=== PATIENT | female | born 1975 | race American Indian/Alaskan Native ===

== ENCOUNTER 2016-09-11 13:53 | Emergency (ER) | payer BC ==
[2016-09-11 15:37] VITALS: BP 129/85
[2016-09-11 16:12] LABS: Creatine Kinase 217 units/L (30-135); Creatine Kinase MB 1.9 ng/mL (0.0-4.0)
[2016-09-11 16:13] LABS: Alanine Aminotransferase 8 units/L (7-56); Albumin 4.2 g/dL (3.9-5); Albumin/Globulin Ratio 1.4 %; Alkaline Phosphatase 57 units/L (35-129); Anion Gap 18 mmol/L; BUN/Creatinine Ratio 16.25; Bilirubin,Total 0.2 mg/dL (0.1-1.2); Blood Urea Nitrogen 13 mg/dL (7-17); Carbon Dioxide 24 mmol/L (22-30); Chloride 96.1 mmol/L (98-107); Glucose 171 mg/dL (65-100); Lipase 42 units/L (13-60); Potassium 3.6 mmol/L (3.6-5.0); Sodium 134 mmol/L (137-145); Total Protein 7.2 g/dL (6.3-8.2)
[2016-09-11 16:16] LABS: Basophils % (Auto) 1.2 % (0.0-1.8); Eosinophils % (Auto) 1.3 % (0.0-4.3); Hematocrit 39.6 % (30.3-42.9); Hemoglobin 13.1 gm/dl (10.1-14.3); Mean Corpuscular HGB Conc 33 % (30-34); Mean Corpuscular Hemoglobin 27 pg (28-32); Mean Corpuscular Volume 80 fl (79-97); Platelet Count 338 K/mm3 (140-440); Red Blood Count 4.96 M/mm3 (3.65-5.03); Red Cell Distribution Width 16.5 % (13.2-15.2); White Blood Count 7.8 K/mm3 (4.5-11.0)
[2016-09-11 18:35] LABS: Bilirubin,Urine NEG (Negative); Blood,Urine MOD (Negative); Ketones,Urine NEG (Negative); Leukocyte Esterase,Urine NEG (Negative); Mucus,Urine FEW /HPF; Nitrite,Urine NEG (Negative); Protein,Urine <15 mg/dL mg/dL (Negative); Urobilinogen,Urine < 2.0 mg/dL (<2.0)
--- NOTE | 2016-09-11 19:27 | Emergency Department Report ---
ED General Adult HPI - General Chief complaint: Abdominal Pain Stated complaint: ABD PAIN,SEVERE SHOULDER MAYEN Source: patient Mode of arrival: Ambulatory Limitations: No Limitations - History of Present Illness Initial comments: Patient here complaining of abdominal pain to left upper quadrant with diarrhea and nausea and reported that she gets dizzy sometimes. She's had these symptoms in the past. She is now reporting left shoulder pain with no injury denies any fever or chills. Denies any nausea vomiting. She is also having this in the past. She said her pain to her left shoulder and left upper abdomen is 9 out of 10 and achy/crampy. Denies any chest pain, shortness of breath. Denies any urinary burning frequency or urgency. Denies any fever or chills. Patient says that she's been waiting so long that her abdominal pain is not there anymore but she is having pain 9 out of 10 in her shoulders it's radiating down to her forearm. She was seen here on 12/06/2015 for chest pain she had cardiac workup which was negative and she was diagnosed with esophagitis and GERD. Patient did not follow-up because she says she lost her insurance but she says that she got her insurance back and she will be following up. Her CT angios to chest also showed that she had a hemangioma of the liver which she will told attending physician at the time that she knew about that. Patient was also complaining that she was having nausea and diarrhea earlier but none since she's been in the emergency room. MD Complaint: abdominal pain and shoulder pain Onset/Timin -: week(s) Location: abdomen, left, upper extremity Radiation: extremity, distal Quality: aching, other (cramping and fluttering to left upper abdomen) Consistency: intermittent Improves with: none Worsens with: movement (to left upper extremity) Associated Symptoms: nausea/vomiting. denies: confusion, chest pain, cough, diaphoresis, fever/chills, loss of appetite, malaise, rash, seizure, shortness of breath, syncope, weakness Treatments Prior to Arrival: none - Related Data Home Medications Medication Instructions Recorded Confirmed Last Taken Triamterene-Hctz 50-25 mg Cap 30 mg PO QDAY 12/06/15 12/06/15 Unknown Previous Rx's Medication Instructions Recorded Last Taken Type Mag Hydrox/Al Hydrox/Simeth 20 ml PO QID PRN #1 bottle 12/07/15 Unknown Rx [Maalox Advanced Suspension] Ranitidine HCl [Zantac 150 MG TAB] 150 mg PO BID #60 tablet 12/07/15 Unknown Rx Triamterene/Hydrochlorothiazid 1 each PO DAILY #30 capsule 12/07/15 Unknown Rx [Triamterene-Hctz 50-25 mg Cap] Promethazine [Phenergan TAB] 25 mg PO Q8HR PRN #15 tab 09/11/16 Unknown Rx traMADol [Ultram 50 MG tab] 50 mg PO Q6HR PRN #20 tablet 09/11/16 Unknown Rx Allergies Allergy/AdvReac Type Severity Reaction Status Date / Time No Known Allergies Allergy Verified 12/06/15 16:02 ED Review of Systems ROS: Stated complaint: ABD PAIN,SEVERE SHOULDER MAYEN Other details as noted in HPI Comment: All other systems reviewed and negative Constitutional: denies: chills, fever Eyes: denies: eye pain, vision change ENT: denies: throat pain Respiratory: no symptoms reported Cardiovascular: denies: chest pain, palpitations, edema, syncope Gastrointestinal: abdominal pain, nausea, diarrhea. denies: vomiting, constipation, melena Genitourinary: denies: urgency, dysuria, frequency, hematuria, discharge Musculoskeletal: arthralgia. denies: back pain, joint swelling, myalgia Skin: denies: rash Neurological: denies: headache ED Past Medical Hx - Past Medical History Previous Medical History?: Yes Hx Hypertension: Yes Additional medical history: Psoriasis - Surgical History Past Surgical History?: Yes Additional Surgical History: 1991 - Family History Family history: hypertension - Social History Smoking Status: Never Smoker Substance Use Type: None - Medications Home Medications: Home Medications Medication Instructions Recorded Confirmed Last Taken Type Triamterene-Hctz 50-25 mg Cap 30 mg PO QDAY 12/06/15 12/06/15 Unknown History Mag Hydrox/Al Hydrox/Simeth 20 ml PO QID PRN #1 bottle 12/07/15 Unknown Rx [Maalox Advanced Suspension] Ranitidine HCl [Zantac 150 MG TAB] 150 mg PO BID #60 tablet 12/07/15 Unknown Rx Triamterene/Hydrochlorothiazid 1 each PO DAILY #30 capsule 12/07/15 Unknown Rx [Triamterene-Hctz 50-25 mg Cap] Promethazine [Phenergan TAB] 25 mg PO Q8HR PRN #15 tab 09/11/16 Unknown Rx traMADol [Ultram 50 MG tab] 50 mg PO Q6HR PRN #20 tablet 09/11/16 Unknown Rx ED Physical Exam - General Limitations: No Limitations General appearance: alert, in no apparent distress - Head Head exam: Present: atraumatic, normocephalic, normal inspection - Eye Eye exam: Present: normal appearance, PERRL, EOMI. Absent: periorbital swelling , periorbital tenderness Pupils: Present: normal accommodation - ENT ENT exam: Present: normal exam, normal orophraynx, mucous membranes moist. Absent: TM's normal bilaterally, normal external ear exam - Neck Neck exam: Present: normal inspection, full ROM. Absent: tenderness, meningismus, lymphadenopathy - Respiratory Respiratory exam: Present: normal lung sounds bilaterally. Absent: respiratory distress, chest wall tenderness - Cardiovascular Cardiovascular Exam: Present: regular rate, normal rhythm, normal heart sounds - GI/Abdominal GI/Abdominal exam: Present: soft, normal bowel sounds. Absent: bruit, pulsatile mass, guarding, rebound, diminished bowel sounds, tenderness, organomegaly, distended, rigid - Expanded Upper Extremity Exam Left Shoulder Exam: Present: normal inspection. Absent: full ROM (Limited range of motion to left shoulder. She is able to raise both her hands of her head but she says it's very painful to her left shoulder), tenderness, swelling, abrasion , laceration, ecchymosis, deformity, crepidus, dislocation, erythema, tenderness over AC joint Upper Arm exam: Present: normal inspection, full ROM. Absent: tenderness, swelling, abrasion, laceration, ecchymosis, deformity, crepidus, dislocation, erythema Elbow exam: Present: normal inspection, full ROM. Absent: tenderness, swelling , abrasion, laceration, ecchymosis, deformity, crepidus, dislocation, erythema, effusion, pain w/ pronation/supination, tenderness over radial head Forearm Wrist exam: Present: normal inspection, full ROM. Absent: tenderness, swelling, abrasion, laceration, ecchymosis, deformity, crepidus, dislocation, erythema, tenderness over anatomical snuff box, pain with axial thumb loading Hand Wrist exam: Present: normal inspection, full ROM. Absent: tenderness, swelling, abrasion, laceration, ecchymosis, deformity, crepidus, dislocation, erythema, amputation, nail avulsion, subungual hematoma Neuro motor exam: Present: wrist extension intact, thumb opposition intact, thumb IP flexion intact, thumb adduction intact, fingers 2-5 abduction intact Neurosensory exam: Present: 2-point discrimination, radial nerve intact, ulnar nerve intact, median nerve intact Vascular: Present: normal capillary refill, radial pulse, brachial pulse, ulnar pulse. Absent: vascular compromise, Pallo, pulse deficit radial art, pulse deficit ulnar art, pulse deficit brachial art - Back Exam Back exam: Present: normal inspection, full ROM. Absent: rash noted - Neurological Exam Neurological exam: Present: alert, reflexes normal, normal gait, oriented X3. Absent: motor sensory deficit - Psychiatric Psychiatric exam: Present: normal affect, normal mood - Skin Skin exam: Present: warm, dry, rash (patient with dry scaly patchy areas to left arm from chronic psoriasis.) ED Course Vital Signs 09/11/16 15:30 Temperature 98.3 F Pulse Rate 106 H Respiratory 18 Rate Blood Pressure 129/85 O2 Sat by Pulse 100 Oximetry Vital Signs 09/11/16 09/11/16 15:30 19:37 Temperature 98.3 F Pulse Rate 106 H 92 H Respiratory 18 18 Rate Blood Pressure 129/85 O2 Sat by Pulse 100 Oximetry - Reevaluation(s) Reevaluation #1: 09/11/16 19:43 Patient given Percocet 5/325 2 tablets, Zofran 4 mg ODT and Deltasone 60 mg by mouth. Reevaluation #2: 09/11/16 19:52 Patient was able to tolerate oral liquids in emergency room without any nausea or vomiting. - Orthopedic Splinting/Casting Injury #1 Side: left Upper Extremity Injury Location: shoulder Upper Extremity Immobilizer: sling/shoulder immobilize ED Medical Decision Making - Lab Data Result diagrams: 09/11/16 15:46 09/11/16 15:46 Lab Results 09/11/16 09/11/16 09/11/16 Range/Units 15:46 15:46 15:46 WBC 7.8 (4.5-11.0) K/mm3 RBC 4.96 (3.65-5.03) M/mm3 Hgb 13.1 (10.1-14.3) gm/dl Hct 39.6 (30.3-42.9) % MCV 80 (79-97) fl MCH 27 L (28-32) pg MCHC 33 (30-34) % RDW 16.5 H (13.2-15.2) % Plt Count 338 (140-440) K/mm3 Lymph % (Auto) 30.8 (13.4-35.0) % [place] % (Auto) 5.3 (0.0-7.3) % Eos % (Auto) 1.3 (0.0-4.3) % Baso % (Auto) 1.2 (0.0-1.8) % Lymph # 2.4 (1.2-5.4) K/mm3 [place] # 0.4 (0.0-0.8) K/mm3 Eos # 0.1 (0.0-0.4) K/mm3 Baso # 0.1 (0.0-0.1) K/mm3 Seg Neutrophils % 61.4 (40.0-70.0) % Seg Neutrophils # 4.8 (1.8-7.7) K/mm3 Sodium 134 L (137-145) mmol/L Potassium 3.6 (3.6-5.0) mmol/L Chloride 96.1 L (98-107) mmol/L Carbon Dioxide 24 (22-30) mmol/L Anion Gap 18 mmol/L BUN 13 (7-17) mg/dL Creatinine 0.8 (0.7-1.2) mg/dL Estimated GFR > 60 ml/min BUN/Creatinine Ratio 16.25 % Glucose 171 H (65-100) mg/dL Calcium 9.0 (8.4-10.2) mg/dL Total Bilirubin 0.2 (0.1-1.2) mg/dL AST 12 (5-40) units/L ALT 8 (7-56) units/L Alkaline Phosphatase 57 (35-129) units/L Total Creatine Kinase 217 H (30-135) units/L CK-MB (CK-2) 1.9 (0.0-4.0) ng/mL CK-MB (CK-2) Rel Index 0.8 (0-4) Troponin T < 0.010 (0.00-0.029) ng/mL Total Protein 7.2 (6.3-8.2) g/dL Albumin 4.2 (3.9-5) g/dL Albumin/Globulin Ratio 1.4 % Lipase 42 (13-60) units/L Urine Color (Yellow) Urine Turbidity (Clear) Urine pH (5.0-7.0) Ur Specific [place] (1.003-1.030) Urine Protein (Negative) mg/dL Urine Glucose (UA) (Negative) mg/dL Urine Ketones (Negative) mg/dL Urine Blood (Negative) Urine Nitrite (Negative) Ur Reducing Substances Urine Bilirubin (Negative) Urine Ictotest Urine Urobilinogen (<2.0) mg/dL Ur Leukocyte Esterase (Negative) Urine WBC (Auto) (0.0-6.0) /HPF Urine RBC (Auto) (0.0-6.0) /HPF U Epithel Cells (Auto) (0-13.0) /HPF Urine Mucus /HPF Urine HCG, Qual (Negative) 09/11/16 Range/Units 18:09 WBC (4.5-11.0) K/mm3 RBC (3.65-5.03) M/mm3 Hgb (10.1-14.3) gm/dl Hct (30.3-42.9) % MCV (79-97) fl MCH (28-32) pg MCHC (30-34) % RDW (13.2-15.2) % Plt Count (140-440) K/mm3 Lymph % (Auto) (13.4-35.0) % [place] % (Auto) (0.0-7.3) % Eos % (Auto) (0.0-4.3) % Baso % (Auto) (0.0-1.8) % Lymph # (1.2-5.4) K/mm3 [place] # (0.0-0.8) K/mm3 Eos # (0.0-0.4) K/mm3 Baso # (0.0-0.1) K/mm3 Seg Neutrophils % (40.0-70.0) % Seg Neutrophils # (1.8-7.7) K/mm3 Sodium (137-145) mmol/L Potassium (3.6-5.0) mmol/L Chloride (98-107) mmol/L Carbon Dioxide (22-30) mmol/L Anion Gap mmol/L BUN (7-17) mg/dL Creatinine (0.7-1.2) mg/dL Estimated GFR ml/min BUN/Creatinine Ratio % Glucose (65-100) mg/dL Calcium (8.4-10.2) mg/dL Total Bilirubin (0.1-1.2) mg/dL AST (5-40) units/L ALT (7-56) units/L Alkaline Phosphatase (35-129) units/L Total Creatine Kinase (30-135) units/L CK-MB (CK-2) (0.0-4.0) ng/mL CK-MB (CK-2) Rel Index (0-4) Troponin T (0.00-0.029) ng/mL Total Protein (6.3-8.2) g/dL Albumin (3.9-5) g/dL Albumin/Globulin Ratio % Lipase (13-60) units/L Urine Color Yellow (Yellow) Urine Turbidity Clear (Clear) Urine pH 5.0 (5.0-7.0) Ur Specific [place] 1.017 (1.003-1.030) Urine Protein <15 mg/dl (Negative) mg/dL Urine Glucose (UA) Neg (Negative) mg/dL Urine Ketones Neg (Negative) mg/dL Urine Blood Mod (Negative) Urine Nitrite Neg (Negative) Ur Reducing Substances Not Reportable Urine Bilirubin Neg (Negative) Urine Ictotest Not Reportable Urine Urobilinogen < 2.0 (<2.0) mg/dL Ur Leukocyte Esterase Neg (Negative) Urine WBC (Auto) 1.0 (0.0-6.0) /HPF Urine RBC (Auto) 2.0 (0.0-6.0) /HPF U Epithel Cells (Auto) 1.0 (0-13.0) /HPF Urine Mucus Few /HPF Urine HCG, Qual Negative (Negative) - EKG Data -: EKG Interpreted by Me EKG shows normal: sinus rhythm Rate: normal - EKG Data When compared to previous EKG there are: no significant change Interpretation: no acute changes - Medical Decision Making ED course: Patient here with left shoulder pain that radiating down to her left forearm without any injury. He is also complaining of left upper quadrant abdominal pain that feels crampy and flattery but has resolved since being in emergency room. Patient was seen here in November 2015 for chest pain and had multiple tests done. Patient is tolerating oral liquids in emergency room. She is given Percocet 5/325 2 tablets, Decadron 60 mg and Zofran 4 mg ODT. See procedure note for splinting in detail. With patient her lab results and told her that she needs to follow-up with a house fellow and I recommend Dr. Williamson for her primary care physician. Patient lab work with mildly decreased in sodium at 136 cardiac enzymes were normal and CK elevated at 217. Urinalysis negative. CBC stable. test negative and these were related to patient. I instructed patient that she needs to schedule appointment with a house fellow and her primary care physician that I will refer her to. She was understanding of discharge diagnosis and treatment plan and discharged home with family in stable condition. patient discharged home with prescription for Ultram and Phenergan. Critical care attestation.: If time is entered above; I have spent that time in minutes in the direct care of this critically ill patient, excluding procedure time. ED Disposition Clinical Impression: Arthralgia of shoulder region, left, Nausea alone Abdominal pain Qualifiers: Abdominal location: left upper quadrant Qualified Code(s): R10.12 - Left upper quadrant pain Diarrhea Qualifiers: Diarrhea type: unspecified type Qualified Code(s): R19.7 - Diarrhea, unspecified Disposition: DISCHARGED TO HOME OR SELFCARE Is pt being admited?: No Does the pt Need Aspirin: No Condition: Stable Instructions: Abdominal Pain (ED), Acute Nausea and Vomiting (ED), Acute Diarrhea (ED), Nutrition Tips for Relief of Diarrhea (ED), Arthralgia (ED) Additional Instructions: Please follow up with house fellow as recommended Please follow up with primary care physician as recommended increase her fluid intake to include Gatorade. Prescriptions: Promethazine [Phenergan TAB] 25 mg PO Q8HR PRN #15 tab PRN Reason: Nausea traMADol [Ultram 50 MG tab] 50 mg PO Q6HR PRN #20 tablet PRN Reason: Pain Referrals: PRIMARY CARE, [Primary Care Provider] - 3-5 Days THERON WILLIAMSON MD, PHD [Staff Physician] - 09/13/16 [facility] [Provider Group] - 09/16/16 Forms: Accompanied Note, Work/School Release Form(ED)
[2016-09-11] MEDS ORDERED: DELTASONE PO ONE (19:42)
[2016-09-11] MEDS ORDERED: ZOFRAN ODT PO ONE (19:42)
[2016-09-11] MEDS ORDERED: PERCOCET 5/325 PO ONE (19:42)
== END 2016-09-11 20:03 | disposition home or self-care (01) ==
LOC: ED 13:53
DX: R10.12 Left upper quadrant pain (principal); R11.0 Nausea; R19.7 Diarrhea, unspecified; M25.512 Pain in left shoulder; I10 Essential (primary) hypertension
CPT/HCPCS: 36415; 80053; 81001; 81025; 82550; 82553; 83690; 84484; 85025; 93005; 93010; 99284; J7512; Q0162

== ENCOUNTER 2017-08-23 00:45 | Emergency (ER) | payer BC, OTHER ==
[2017-08-23] MEDS ORDERED: TYLENOL PO ONE (02:16)
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
[2017-08-23 07:48] VITALS: BP 146/104
== END 2017-08-23 07:47 | disposition home or self-care (01) ==
LOC: ED 00:45
DX: M79.1 Myalgia (principal); I10 Essential (primary) hypertension; Z87.891 Personal history of nicotine dependence; V89.2XXA Person injured in unspecified motor-vehicle accident, traffic, initial encounter
CPT/HCPCS: 99282

== ENCOUNTER 2018-08-25 19:45 | Emergency (ER) | payer OTHER ==
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
[2018-08-26 02:37] VITALS: BP 187/103
[2018-08-26] MEDS ORDERED: CATAPRES PO ONE (02:38)
[2018-08-26] MEDS ORDERED: TYLENOL PO ONE (02:42)
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
== END 2018-08-26 04:20 | disposition home or self-care (01) ==
LOC: ED 19:45
DX: S16.1XXA Strain of muscle, fascia and tendon at neck level, initial encounter (principal); I10 Essential (primary) hypertension; K21.9 Gastro-esophageal reflux disease without esophagitis; L40.9 Psoriasis, unspecified; Z79.899 Other long term (current) drug therapy; V89.2XXA Person injured in unspecified motor-vehicle accident, traffic, initial encounter; Y93.89 Activity, other specified; Y92.89 Other specified places as the place of occurrence of the external cause; Y99.8 Other external cause status
CPT/HCPCS: 72040